=== PATIENT | female | born 1955 | race African-American/Black ===

== ENCOUNTER 2017-08-01 05:52 | Inpatient (IN) ==
[~2017-08-01 05:52] MED LIST: DIAZEPAM 5 MG TABLET PO ONE; FAMOTIDINE 20 MG TABLET PO ONE
[2017-08-01] MEDS ORDERED: VANCOMYCIN INJ 1,000 MG in SODIUM CHLORIDE 0.9% 250 ML IV ONE (06:00)
[2017-08-01] MEDS ORDERED: ceFAZolin 1,000 MG in SYRINGE 1 EACH IV ONE (06:00)
[2017-08-01] MEDS ORDERED: VANCOMYCIN 1,000 MG VIAL ONE (06:12)
[2017-08-01] MEDS ORDERED: ceFAZolin 1,000 MG VIAL ONE (06:12)
[2017-08-01] MEDS ORDERED: FAMOTIDINE 20 MG TABLET ONE (06:42)
[2017-08-01] MEDS ORDERED: DIAZEPAM 5 MG TABLET ONE (06:42)
[2017-08-01] MEDS: LACTATED RINGERS 1,000 ML IV SCH ×2 (06:50→16:52)
[2017-08-01] MEDS ORDERED: TRANEXAMIC ACID 1,000 MG/10 ML VIAL IV ONE (06:50)
[2017-08-01] MEDS ORDERED: ONDANSETRON 4 MG/2 ML VIAL IV PRN ×2 (07:14→09:08)
[2017-08-01] MEDS ORDERED: TEMAZEPAM 7.5 MG CAPSULE PO PRN (07:14)
[2017-08-01] MEDS ORDERED: LACTULOSE 20 GM/30 ML UDCUP PO PRN (07:14)
[2017-08-01] MEDS ORDERED: NALOXONE 0.4 MG/ML VIAL IV PRN (07:14)
[2017-08-01] MEDS ORDERED: BISACODYL 10 MG SUPP RECTAL PRN (07:14)
[2017-08-01] MEDS ORDERED: diphenhydrAMINE CAP 25 MG CAPSULE PO PRN (07:14)
[2017-08-01] MEDS ORDERED: PROMETHAZINE 25 MG/1 ML VIAL IM PRN (07:14)
[2017-08-01] MEDS ORDERED: HYDROmorphone 2 MG/1 ML VIAL IV PRN (07:14)
[2017-08-01] MEDS ORDERED: FLUCONAZOLE 100 MG TABLET PO PRN (07:17)
[2017-08-01] MEDS ORDERED: COLESTIPOL 1 GM TABLET PO PRN (07:30)
[2017-08-01] MEDS ORDERED: CLORAZEPATE 7.5 MG TABLET PO PRN (07:30)
[2017-08-01] MEDS ORDERED: ALENDRONATE SODIUM 35 MG PO SCH (09:00)
[2017-08-01] MEDS ORDERED: ROPIVACAINE 0.5% 30 ML VIAL ONE (09:01)
[2017-08-01] MEDS ORDERED: LIDOCAINE 50 MG/5 ML SYRINGE ONE (09:04)
[2017-08-01] MEDS ORDERED: ONDANSETRON 4 MG/2 ML VIAL ONE ×2 (09:05→10:32)
[2017-08-01] MEDS ORDERED: HYDROmorphone 2 MG/1 ML VIAL ONE (09:05)
[2017-08-01] MEDS: HYDROmorphone 2 MG/1 ML VIAL IV PRN ×4 (09:05→09:40)
[2017-08-01] MEDS ORDERED: PROPOFOL 200 MG/20 ML VIAL IV ONE ×2 (09:06→10:32)
[2017-08-01] MEDS ORDERED: HYDROmorphone PCA 30 MG/30 ML SYRINGE IV ONE (09:23)
[2017-08-01] MEDS: HYDROmorphone PCA 30 MG/30 ML SYRINGE IV SCH (09:32)
[2017-08-01] MEDS ORDERED: MIDAZOLAM 2 MG/2 ML VIAL ONE (10:31)
[2017-08-01] MEDS ORDERED: fentaNYL 100 MCG/2 ML VIAL ONE (10:31)
[2017-08-01] MEDS ORDERED: LACTATED RINGERS 1,000 ML IV ONE (10:32)
[2017-08-01] MEDS ORDERED: KETOROLAC 30 MG/1 ML VIAL ONE (10:32)
[2017-08-01] MEDS ORDERED: NEOSTIGMINE 10 MG/10 ML VIAL ONE (10:32)
[2017-08-01] MEDS ORDERED: GLYCOPYRROLATE 0.4 MG/2 ML VIAL ONE (10:32)
[2017-08-01] MEDS ORDERED: ROCURONIUM 100 MG/10 ML VIAL IV ONE (10:32)
[2017-08-01] MEDS ORDERED: ACETAMINOPHEN 1,000 MG/100 ML VIAL IV ONE (10:32)
[2017-08-01 11:25] LABS: Basophils % 0.3 % (0.0-0.8); Eosinophils % 0.2 % (0.00-10.9); Hematocrit 32.4 VOL% (35.7-47.0); Hemoglobin 10.9 GM/DL (12.0-16.0); Immature Granulocytes % 0.4 %; Immature Granulocytes Absolute 0.04 #; Lymphocytes # 1.5 10*3/uL (1.4-4.0); Mean Corpuscular HGB Conc 33.6 GM/DL (32-36); Mean Corpuscular Hemoglobin 28 PG (27-34); Mean Corpuscular Volume 81.6 FL (87-102); Mean Platelet Volume 9.5 FL (9.6-12.0); Monocytes # 0.3 10*3/uL (0.11-0.8); Monocytes % 2.7 % (1.7-12.7); Neutrophils # 8.6 10*3/uL (1.4-7.4); Neutrophils % 82.4 % (38.7-73.9); Platelet Count 173 T/CUMM (130-400); Red Blood Count 3.97 MC/CUMM (3.8-5.5); Red Cell Distribution Width 14.2 % (9.3-17.3); White Blood Count 10.4 T/CUMM (4-12)
[2017-08-01 11:51] LABS: Calcium 7.4 MG/DL (8.5-10.1); Osmolality,Calculated 280.4 MOS/KG (273-304); Potassium 3.9 MMOL/L (3.5-5.1)
[2017-08-01] MEDS: ceFAZolin 2,000 MG in PREMIX 1 EACH IV SCH ×2 (12:09→20:53)
[2017-08-01] MEDS: BISOPROLOL/HCTZ 2.5-6.25 MG TABLET PO SCH (15:51)
[2017-08-01] MEDS: DULoxetine 30 MG CAPSULE PO SCH (16:14)
[2017-08-01] MEDS: MULTIVITAMIN (CENTRUM) TABLET PO SCH (16:14)
[2017-08-01] MEDS: DOCUSATE SODIUM 100 MG CAPSULE PO SCH ×2 (16:14→20:42)
[2017-08-01] MEDS: MAGNESIUM CHLORIDE 64 MG TABLET PO SCH (16:14)
[2017-08-01] MEDS: FONDAPARINUX 2.5 MG/0.5 ML SYRINGE SUBCUT SCH (18:47)
[2017-08-02 06:02] LABS: Basophils % 0.3 % (0.0-0.8); Eosinophils % 0.2 % (0.00-10.9); Hematocrit 33.7 VOL% (35.7-47.0); Hemoglobin 11.5 GM/DL (12.0-16.0); Immature Granulocytes % 0.4 %; Immature Granulocytes Absolute 0.04 #; Lymphocytes # 2.3 10*3/uL (1.4-4.0); Lymphocytes % 22.8 % (21.3-54.2); Mean Corpuscular HGB Conc 34.1 GM/DL (32-36); Mean Corpuscular Hemoglobin 27 PG (27-34); Mean Corpuscular Volume 80.2 FL (87-102); Mean Platelet Volume 9.8 FL (9.6-12.0); Monocytes % 10.5 % (1.7-12.7); Neutrophils # 6.6 10*3/uL (1.4-7.4); Neutrophils % 65.8 % (38.7-73.9); Platelet Count 193 T/CUMM (130-400); Red Cell Distribution Width 13.8 % (9.3-17.3)
[2017-08-02 06:23] LABS: Band Neutrophils 2 % (0-10); Giant Platelets Few; Hypochromasia 1+; Lymphocytes 26 % (20-55); Platelet Estimate Adequate; Segmented Neutrophils 63 % (50-85); Total Cells Counted 100
[2017-08-02 06:34] LABS: Calcium 7.4 MG/DL (8.5-10.1); Osmolality,Calculated 281.3 MOS/KG (273-304); Potassium 3.7 MMOL/L (3.5-5.1)
[2017-08-02] MEDS: LACTATED RINGERS 1,000 ML IV SCH ×2 (08:05→23:17)
[2017-08-02] MEDS: BISOPROLOL/HCTZ 2.5-6.25 MG TABLET PO SCH (08:20)
[2017-08-02] MEDS: MULTIVITAMIN (CENTRUM) TABLET PO SCH (08:21)
[2017-08-02] MEDS: MAGNESIUM CHLORIDE 64 MG TABLET PO SCH (08:21)
[2017-08-02] MEDS: DULoxetine 30 MG CAPSULE PO SCH (08:21)
[2017-08-02] MEDS: ERGOCALCIFEROL 50,000 UNIT CAPSULE PO SCH ×2 (08:21→23:16)
[2017-08-02] MEDS: DOCUSATE SODIUM 100 MG CAPSULE PO SCH ×2 (08:21→20:11)
[2017-08-02] MEDS ORDERED: VITAMIN E 100 UNIT PO SCH (09:00)
[2017-08-02] MEDS ORDERED: BIFIDOBACTERIUM INFANTIS PO SCH (09:00)
[2017-08-02] MEDS: HYDROmorphone PCA 30 MG/30 ML SYRINGE IV SCH (11:44)
[2017-08-02] MEDS ORDERED: ACETAMINOPHEN 325 MG TABLET PO PRN (12:45)
[2017-08-02] MEDS: FONDAPARINUX 2.5 MG/0.5 ML SYRINGE SUBCUT SCH (18:06)
[2017-08-03] MEDS: MAGNESIUM HYDROXIDE SUSP 30 ML UDCUP PO PRN ×3 (00:49→18:49)
[2017-08-03] MEDS: LACTATED RINGERS 1,000 ML IV SCH (03:39)
[2017-08-03] MEDS: MULTIVITAMIN (CENTRUM) TABLET PO SCH (08:46)
[2017-08-03] MEDS: DULoxetine 30 MG CAPSULE PO SCH (08:46)
[2017-08-03] MEDS: DOCUSATE SODIUM 100 MG CAPSULE PO SCH ×2 (08:46→20:50)
[2017-08-03] MEDS: BISOPROLOL/HCTZ 2.5-6.25 MG TABLET PO SCH (08:46)
[2017-08-03] MEDS: MAGNESIUM CHLORIDE 64 MG TABLET PO SCH (08:46)
[2017-08-03] MEDS: ERGOCALCIFEROL 50,000 UNIT CAPSULE PO SCH (14:14)
[2017-08-03] MEDS: FONDAPARINUX 2.5 MG/0.5 ML SYRINGE SUBCUT SCH (17:11)
[2017-08-03] MEDS: HYDROmorphone PCA 30 MG/30 ML SYRINGE IV SCH (21:19)
[2017-08-03 21:30] LABS: Apearance,Urine CLEAR (Clear); Bilirubin,Urine Negative (Negative); Blood, Urine Small mg/dL (Negative); Glucose,Urine (UA) Negative (Negative); Hyaline Casts,Urine 1 /LPF (0-3); Ketones,Urine Negative (Negative); Mucus,Urine Occasional /LPF (Occasional); Nitrite,Urine Negative (Negative); Protein,Urine Negative; RBC,Urine 1 /HPF (0-4); Squamous Epithelial Cell,Urine Occasional /HPF (0-10); Urine Color Yellow (Yellow); Urine Specific Gravity 1.013 (1.001-1.035); Urine Urobilinogen < 2.0 EU/DL (0.2-1.0); WBC,Urine 7 /HPF (0-6)
[2017-08-04] MEDS: ERGOCALCIFEROL 50,000 UNIT CAPSULE PO SCH ×2 (03:28→16:34)
[2017-08-04] MEDS: DOCUSATE SODIUM 100 MG CAPSULE PO SCH ×2 (08:23→21:23)
[2017-08-04] MEDS: MAGNESIUM CHLORIDE 64 MG TABLET PO SCH (08:23)
[2017-08-04] MEDS: MULTIVITAMIN (CENTRUM) TABLET PO SCH (08:23)
[2017-08-04] MEDS: DULoxetine 30 MG CAPSULE PO SCH (08:23)
[2017-08-04] MEDS: BISOPROLOL/HCTZ 2.5-6.25 MG TABLET PO SCH (08:24)
[2017-08-04] MEDS: CIPROFLOXACIN 250 MG TABLET PO SCH ×2 (12:00→21:23)
[2017-08-04] MEDS: FONDAPARINUX 2.5 MG/0.5 ML SYRINGE SUBCUT SCH (17:55)
[2017-08-05] MEDS: ERGOCALCIFEROL 50,000 UNIT CAPSULE PO SCH (06:54)
[2017-08-05] MEDS: CIPROFLOXACIN 250 MG TABLET PO SCH (08:19)
[2017-08-05] MEDS: MULTIVITAMIN (CENTRUM) TABLET PO SCH (08:19)
[2017-08-05] MEDS: DOCUSATE SODIUM 100 MG CAPSULE PO SCH (08:20)
[2017-08-05] MEDS: MAGNESIUM CHLORIDE 64 MG TABLET PO SCH (08:20)
[2017-08-05] MEDS: BISOPROLOL/HCTZ 2.5-6.25 MG TABLET PO SCH (08:20)
[2017-08-05] MEDS: DULoxetine 30 MG CAPSULE PO SCH (08:20)
[2017-08-05 12:38] VITALS: BP 146/52
== END 2017-08-05 13:30 | disposition home health service (06) | DRG 470 ==
LOC: N.SDSINP 05:52 → N.3E 10:09
PROVIDERS: ADMIT Orthopaedic Surgery; ATTEND Orthopaedic Surgery

== ENCOUNTER 2021-09-11 14:44 | Inpatient (IN) ==
[2021-09-11] MEDS ORDERED: DILTIAZEM 100 MG VIAL.ADD IV ONE (15:05)
[2021-09-11] MEDS ORDERED: DILTIAZEM 50 MG/10 ML VIAL IV ONE (15:05)
[2021-09-11] MEDS ORDERED: ENOXAPARIN 100 MG/ML SYRINGE SUBCUT STA (15:07)
[2021-09-11] MEDS ORDERED: DILTIAZEM 50 MG/10 ML VIAL IV STA (15:07)
[2021-09-11 15:29] LABS: Basophils # 0.1 10*3/uL (0.0-0.2); Basophils % 0.6 % (0.0-0.8); Eosinophils # 0.1 10*3/uL (0.0-0.87); Eosinophils % 1.4 % (0.00-10.9); Hematocrit 46.6 VOL% (35.7-47.0); Hemoglobin 15.7 GM/DL (12.0-16.0); Immature Granulocytes % 0.2 %; Immature Granulocytes Absolute 0.02 #; Lymphocytes # 4.5 10*3/uL (1.4-4.0); Lymphocytes % 43.5 % (21.3-54.2); Mean Corpuscular HGB Conc 33.7 GM/DL (32-36); Mean Platelet Volume 9.3 FL (9.6-12.0); Monocytes % 6.3 % (1.7-12.7); Platelet Count 305 T/CUMM (130-400); Red Blood Count 5.68 MC/CUMM (3.8-5.5); Red Cell Distribution Width 13.8 % (9.3-17.3); White Blood Count 10.3 T/CUMM (4-12)
[2021-09-11] MEDS ORDERED: DILTIAZEM INJ 100 MG in SODIUM CHLORIDE 0.9% 100 ML IV SCH (15:30)
[2021-09-11] MEDS ORDERED: DILTIAZEM 30 MG TABLET PO STA (15:56)
[2021-09-11 15:57] LABS: Anisocytosis 1+; Macrocytosis Slight; Microcytosis 1+; Platelet Estimate Normal; Polychromasia Few; Target Cells Few
[2021-09-11 15:58] LABS: Albumin 3.7 G/DL (3.4-5.0); Bilirubin,Total 0.5 MG/DL (0.20-1.00); Osmolality,Calculated 279.5 MOS/KG (273-304); Potassium 4.1 MMOL/L (3.5-5.1); Thyroid Stimulating Hormone 2.79 uIU/ml (0.358-3.74); Total Protein 7.5 G/DL (6.4-8.2)
[2021-09-11] MEDS ORDERED: GLUCAGON 1 MG VIAL IM PRN (16:46)
[2021-09-11] MEDS ORDERED: ONDANSETRON 4 MG/2 ML VIAL IV PRN (16:46)
[2021-09-11] MEDS ORDERED: DOCUSATE SODIUM 100 MG CAPSULE PO PRN (16:46)
[2021-09-11] MEDS ORDERED: ALBUTEROL/IPRATROPIUM 3 ML NEB RESP TX PRN (16:46)
[2021-09-11] MEDS ORDERED: ACETAMINOPHEN 325 MG TABLET PO PRN (16:46)
[2021-09-11] MEDS ORDERED: hydrALAZINE 20 MG/1 ML VIAL IV PRN (16:46)
[2021-09-11] MEDS ORDERED: DEXTROSE 10% 250 ML BAG IV PRN (16:56)
[2021-09-11] MEDS ORDERED: traZODone 50 MG TABLET PO PRN (17:02)
[2021-09-11] MEDS ORDERED: CLORAZEPATE 3.75 MG TABLET PO PRN (17:23)
[2021-09-11] MEDS ORDERED: LABETALOL 20 MG/4 ML SYRINGE IV STA (18:45)
[2021-09-11] MEDS ORDERED: ZALEPLON 5 MG CAPSULE PO PRN (18:45)
[2021-09-11 19:36] LABS: Bacteria,Urine Occasional /HPF (Few); Bilirubin,Urine Negative (Negative); Blood, Urine Negative (Negative); Glucose,Urine (UA) Negative (Negative); Ketones,Urine Negative (Negative); Mucus,Urine Occasional /LPF (Occasional); Nitrite,Urine Negative (Negative); Protein,Urine Negative; Squamous Epithelial Cell,Urine Occasional /HPF (0-10); Urine Appearance Clear (Clear); Urine Color Light Yellow (Yellow); Urine Urobilinogen 0.2 EU/DL (<2.0)
[2021-09-11 19:41] LABS: Barbiturates Screen,Urine Negative (Negative); Benzodiazepines Screen,Urine Negative (Negative); Cannabinoid Screen,Urine Negative (Negative); Opiate Screen,Urine Negative (Negative); Phencyclidine Screen,Urine Negative (Negative)
[2021-09-11] MEDS: METOPROLOL TARTRATE 25 MG TABLET PO SCH (21:33)
[2021-09-12 04:50] LABS: Albumin 2.9 G/DL (3.4-5.0); Bilirubin,Total 0.4 MG/DL (0.20-1.00); Calcium 8.6 MG/DL (8.5-10.1); Osmolality,Calculated 283.1 MOS/KG (273-304); Potassium 3.4 MMOL/L (3.5-5.1); Risk Ratio 3.13; Total Protein 6.3 G/DL (6.4-8.2); VLDL Cholesterol 19.6 MG/DL
[2021-09-12 05:04] LABS: Basophils # 0.1 10*3/uL (0.0-0.2); Basophils % 0.8 % (0.0-0.8); Eosinophils # 0.2 10*3/uL (0.0-0.87); Eosinophils % 1.8 % (0.00-10.9); Hematocrit 40.2 VOL% (35.7-47.0); Immature Granulocytes % 0.1 %; Immature Granulocytes Absolute 0.01 #; Lymphocytes # 4.3 10*3/uL (1.4-4.0); Lymphocytes % 48.7 % (21.3-54.2); Mean Corpuscular HGB Conc 33.6 GM/DL (32-36); Mean Corpuscular Volume 82.4 FL (87-102); Mean Platelet Volume 9.3 FL (9.6-12.0); Monocytes % 6.9 % (1.7-12.7); Neutrophils % 41.7 % (38.7-73.9); Platelet Count 258 T/CUMM (130-400); Red Blood Count 4.88 MC/CUMM (3.8-5.5); Red Cell Distribution Width 13.9 % (9.3-17.3); White Blood Count 8.7 T/CUMM (4-12)
[2021-09-12 05:06] LABS: Hemoglobin 13.5 GM/DL (12.0-16.0)
[2021-09-12] MEDS ORDERED: ENOXAPARIN 150 MG/ML SYRINGE SUBCUT SCH (06:00)
[2021-09-12] MEDS ORDERED: POTASSIUM CHLORIDE 20 MEQ TABLET PO ONE (07:18)
[2021-09-12] MEDS ORDERED: ERGOCALCIFEROL 50,000 UNIT CAPSULE PO SCH (07:30)
[2021-09-12] MEDS ORDERED: MULTIVITAMIN (CENTRUM) TABLET PO SCH (09:00)
[2021-09-12] MEDS ORDERED: MAGNESIUM CHLORIDE 64 MG TABLET PO SCH (09:00)
[2021-09-12] MEDS ORDERED: DULoxetine 30 MG CAPSULE PO SCH (09:00)
[2021-09-12] MEDS ORDERED: VITAMIN E 400 UNIT CAPSULE PO SCH (09:00)
[2021-09-12] MEDS ORDERED: ENOXAPARIN 100 MG/ML SYRINGE SUBCUT SCH (09:00)
[2021-09-12] MEDS ORDERED: LORATADINE 10 MG TABLET PO PRN (09:12)
[2021-09-12] MEDS: METOPROLOL TARTRATE 25 MG TABLET PO SCH (09:45)
[2021-09-12] MEDS ORDERED: LORATADINE 10 MG TABLET PO SCH (10:00)
[2021-09-12 11:06] VITALS: BP 129/60
[2021-09-12] MEDS ORDERED: APIXABAN 5 MG TABLET PO SCH (21:00)
[2021-09-12] MEDS ORDERED: ASCORBIC ACID 500 MG TABLET PO SCH (21:00)
== END 2021-09-12 11:55 | disposition home or self-care (01) | DRG 309 ==
LOC: N.ED 14:44 → N.EDINP 16:46
PROVIDERS: ADMIT Emergency Medicine; ATTEND Emergency Medicine

== ENCOUNTER 2022-03-14 17:29 | Observation (INO) ==
[2022-03-14 19:05] LABS: Basophils # 0.1 10*3/uL (0.0-0.2); Basophils % 0.6 % (0.0-0.8); Eosinophils # 0.1 10*3/uL (0.0-0.87); Eosinophils % 1.3 % (0.00-10.9); Hematocrit 43.3 VOL% (35.7-47.0); Hemoglobin 14.3 GM/DL (12.0-16.0); Immature Granulocytes % 0.4 %; Immature Granulocytes Absolute 0.03 #; Lymphocytes % 38.8 % (21.3-54.2); Mean Corpuscular Volume 81.1 FL (87-102); Mean Platelet Volume 9.5 FL (9.6-12.0); Monocytes # 0.5 10*3/uL (0.11-0.8); Monocytes % 6.6 % (1.7-12.7); Neutrophils % 52.3 % (38.7-73.9); Platelet Count 243 T/CUMM (130-400); Red Blood Count 5.34 MC/CUMM (3.8-5.5); Red Cell Distribution Width 16.1 % (9.3-17.3); White Blood Count 7.7 T/CUMM (4-12)
[2022-03-14 19:17] LABS: INR 1.1; PT Patient Result 12.1 SECS (10.1-12.1)
[2022-03-14 19:29] LABS: Albumin 3.3 G/DL (3.4-5.0); Bilirubin,Total 0.6 MG/DL (0.20-1.00); Calcium 9.2 MG/DL (8.5-10.1); Osmolality,Calculated 283.1 MOS/KG (273-304); Potassium 3.9 MMOL/L (3.5-5.1); Total Protein 7.3 G/DL (6.4-8.2)
[2022-03-14] MEDS ORDERED: DILTIAZEM 25 MG/5 ML VIAL IV STA (19:58)
[2022-03-14] MEDS ORDERED: DENOSUMAB 60 MG/ML SYRINGE SUBCUT SCH (21:30)
[2022-03-14] MEDS ORDERED: CLORAZEPATE 3.75 MG TABLET PO PRN (21:51)
[2022-03-14] MEDS ORDERED: ACETAMINOPHEN 325 MG TABLET PO PRN (22:10)
[2022-03-14] MEDS ORDERED: DEXTROSE 10% 250 ML BAG IV PRN (22:10)
[2022-03-14] MEDS ORDERED: ALUMINUM/MAGNES/SIMETH MAX STR 30 ML UDCUP PO PRN (22:10)
[2022-03-14] MEDS ORDERED: ONDANSETRON 4 MG/2 ML VIAL IV PRN (22:10)
[2022-03-14] MEDS ORDERED: GLUCAGON 1 MG VIAL IM PRN (22:10)
[2022-03-14] MEDS ORDERED: MELATONIN 3 MG TABLET PO PRN (22:15)
[2022-03-14] MEDS ORDERED: traMADol 50 MG TABLET PO PRN (22:15)
[2022-03-14] MEDS: METOPROLOL TARTRATE 50 MG TABLET PO SCH (22:23)
[2022-03-14] MEDS: APIXABAN 5 MG TABLET PO SCH (22:23)
[2022-03-14] MEDS ORDERED: HydrOXYzine PAMOATE 25 MG CAPSULE PO PRN (22:29)
[2022-03-15] MEDS ORDERED: KETOROLAC 30 MG/1 ML VIAL IV ONE (02:18)
[2022-03-15 05:47] LABS: Basophils # 0.1 10*3/uL (0.0-0.2); Basophils % 0.8 % (0.0-0.8); Eosinophils # 0.1 10*3/uL (0.0-0.87); Eosinophils % 1.9 % (0.00-10.9); Hematocrit 41.4 VOL% (35.7-47.0); Hemoglobin 13.8 GM/DL (12.0-16.0); Immature Granulocytes % 0.1 %; Immature Granulocytes Absolute 0.01 #; Lymphocytes # 2.9 10*3/uL (1.4-4.0); Lymphocytes % 39.8 % (21.3-54.2); Mean Corpuscular HGB Conc 33.3 GM/DL (32-36); Mean Corpuscular Volume 80.5 FL (87-102); Mean Platelet Volume 9.4 FL (9.6-12.0); Monocytes # 0.6 10*3/uL (0.11-0.8); Monocytes % 7.9 % (1.7-12.7); Neutrophils % 49.5 % (38.7-73.9); Platelet Count 230 T/CUMM (130-400); Red Blood Count 5.14 MC/CUMM (3.8-5.5); White Blood Count 7.2 T/CUMM (4-12)
[2022-03-15 06:21] LABS: Osmolality,Calculated 287.8 MOS/KG (273-304); Potassium 3.8 MMOL/L (3.5-5.1); Thyroid Stimulating Hormone 5.23 uIU/ml (0.358-3.74)
[2022-03-15] MEDS: APIXABAN 5 MG TABLET PO SCH (08:51)
[2022-03-15] MEDS: METOPROLOL TARTRATE 50 MG TABLET PO SCH (08:51)
[2022-03-15] MEDS ORDERED: MULTIVITAMIN (CENTRUM) TABLET PO SCH (09:00)
[2022-03-15] MEDS ORDERED: amLODIPine 2.5 MG TABLET PO SCH (09:00)
[2022-03-15] MEDS ORDERED: BISACODYL 5 MG TABLET PO SCH (09:00)
[2022-03-15] MEDS ORDERED: MAGNESIUM CHLORIDE 64 MG TABLET PO SCH (09:00)
[2022-03-15] MEDS ORDERED: DULoxetine 30 MG CAPSULE PO SCH (09:00)
[2022-03-15] MEDS ORDERED: BACILLUS COAGULANS CAPLET PO SCH (09:00)
[2022-03-15] MEDS ORDERED: ASPIRIN EC 81 MG TABLET PO SCH (09:00)
[2022-03-15] MEDS ORDERED: VITAMIN E 400 UNIT CAPSULE PO SCH (09:00)
[2022-03-15] MEDS ORDERED: PANTOPRAZOLE 40 MG TABLET PO SCH (09:00)
[2022-03-15] MEDS ORDERED: CALCIUM (CARBONATE) 500 MG TABLET PO SCH (09:00)
[2022-03-15] MEDS ORDERED: FUROSEMIDE 20 MG TABLET PO SCH (09:00)
[2022-03-15 12:38] VITALS: BP 92/58
[2022-03-16] MEDS ORDERED: METOPROLOL SUCCINATE XL 25 MG TABLET PO SCH (09:00)
[2022-03-18] MEDS ORDERED: ERGOCALCIFEROL 50,000 UNIT CAPSULE PO SCH (09:00)
== END 2022-03-15 14:54 | disposition home or self-care (01) ==
LOC: EDBD → EDUNIT# → N.ED 17:29 → N.EDINP 17:29 → N.TELES 03-15 03:33
PROVIDERS: ADMIT Emergency Medicine; ATTEND Emergency Medicine